=== PATIENT | female | born 1980 | race Caucasian/White ===

== ENCOUNTER 2016-09-02 06:49 | Emergency (ER) | payer OTHER ==
[~2016-09-02] VITALS: Ht 157.5 cm; Wt 81.6 kg
[~2016-09-02 06:49] MED LIST: CELEXA10 MG PO; DAILY MULTIPLE1 EAC1 PO; DEPO-PROVE150 MG/1 M IM; IRON325 M1 PO; XANAX0.5 MG PO
[2016-09-02] MEDS ORDERED: MOBIC15 MG PO (08:05)
== END 2016-09-02 09:05 | disposition short-term general hospital (02) ==
LOC: ER 06:49
DX: E86.0 Dehydration (principal); K52.9 Noninfective gastroenteritis and colitis, unspecified; Z79.899 Other long term (current) drug therapy